=== PATIENT | male | born 1985 | race Caucasian/White ===

== ENCOUNTER 2017-07-21 18:20 | Emergency (ER) | payer BC ==
[2017-07-21 18:51] VITALS: BP 144/97
--- NOTE | 2017-07-21 19:06 | UC ---
General HPI - HPI Summary HPI Summary: Per adult secondary education instructor: ""loss of vision in my left eye. blurry and headache.. feels like somebody hit me in the back (lower back pain) and it chang when I pee"- states sx started w/in the last hour. Denies foreign body in eye. Started feeling dizzy an hour ago while driving- denies syncopal episode. Pt is type 2 diabetic, last BG check 2 days ago was 180. Was off meds for 2 months d/t PCP change- has been on diabetic meds x1 month now and following up w/ PCP on labs. " -was feeling well until he ate taco [employer] last night. woke up nauseated and throwing up between 2300 last night and 3 AM today. appetite is still poor. ate 1300 today and threw up 30 mins later. he has been dizzy, more room spinning that lightheaded. 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 denies sx of amaurosis fugax sx. no diplopia. lost vision for ~ 10-15 mins and has returned but fuzzy. states that he doesn't recall much from that time that it was "kind of like tunnel vision" . denies CP/SOB. no abd pain. no coffee ground emesis. no melena/BRBPR. denies w/n/t in arms or legs, no slurred speech. -c/o left low back pain, start of dysuria ~ 1 hr ago. no hematuria. not on insulin Fhx unknown as he is adopted. Here w/ his who is very supportive - History of Current Complaint Chief Complaint: UCGU Stated Complaint: HEADACHE, LEFT EYE BLURRED VISION, URINARY Time Seen by Provider: 07/21/17 18:35 Pain Intensity: 5 - Allergy/Home Medications Allergies/Adverse Reactions: Allergies Allergy/AdvReac Type Severity Reaction Status Date / Time cefaclor [From [facility]] Allergy Severe Hives Verified 07/21/17 18:43 Home Medications: Home Medications Dapagliflozin Propanediol [Farxiga] 10 mg PO DAILY 07/21/17 [History Confirmed 07/21/17] FLUoxetine CAP* [Prozac CAP*] 20 mg PO BID 07/21/17 [History Confirmed 07/21/17] Fenofibrate 160 mg BEDTIME 07/21/17 [History Confirmed 07/21/17] LevoCETirizine TAB (NF) [Xyzal TAB (NF)] 5 mg PO DAILY 07/21/17 [History Confirmed 07/21/17] Sitagliptin Phosphate [Januvia] 100 mg PO BEDTIME 07/21/17 [History Confirmed ] metFORMIN* [Glucophage 1000 MG TAB *] 1,000 mg PO BID 07/21/17 [History Confirmed 07/21/17] PMH/Surg Hx/FS Hx/Imm Hx Previously Healthy: Yes Endocrine History: Diabetes - Surgical History Surgical History: Yes Surgery Procedure, Year, and Place: Pilonidal cyst. Colon resection. Tonsils. Ear tubes - Family History Known Family History: Positive: Unknown - adopted - Social History Alcohol Use: Occasionally Substance Use Type: None Smoking Status (MU): Never Smoked Tobacco Type: Smokeless Tobacco Review of Systems Constitutional: Fatigue Skin: Negative Eyes: Other - left vision loss ENT: Negative Respiratory: Negative Cardiovascular: Negative Gastrointestinal: Negative Genitourinary: Negative Motor: Negative Neurovascular: Negative Musculoskeletal: Negative Neurological: Headache, Weakness, Other - dizzy Psychological: Negative Is Patient Immunocompromised?: No All Other Systems Reviewed And Are Negative: Yes Physical Exam Triage Information Reviewed: Yes Appearance: Well-Nourished, Ill-Appearing Vital Signs: Initial Vital Signs Temp 98 F 07/21/17 18:45 Pulse 84 07/21/17 18:45 Resp 16 07/21/17 18:45 BP 144/97 07/21/17 18:45 Pulse Ox 97 07/21/17 18:45 Vital Signs Reviewed: Yes Eye Exam: Normal - PERRL, EOMI, CR II-XII intact. ENT Exam: Normal ENT: Positive: Pharynx normal, TMs normal Dental Exam: Normal Neck exam: Normal Neck: Positive: Supple, Nontender, No Lymphadenopathy Respiratory: Positive: Lungs clear, Normal breath sounds, No respiratory distress, No accessory muscle use. Negative: Crackles, Rhonchi, Stridor, Wheezing Cardiovascular Exam: Normal Cardiovascular: Positive: RRR, No Murmur, Pulses Normal Abdomen Description: Positive: Nontender, Soft, CVA Tenderness (L) Musculoskeletal Exam: Normal Neurological: Positive: Lethargic - slight, Other: - strength intact B/L UE & LE b/l and equal. neg rhomberg, no pronatort drift. able to do tandem gait, but slowly and with concentration. Psychological Exam: Normal Skin Exam: Normal Course/Dx - Course Course Of Treatment: FS - 161. UA + 3 glucose (d/t farxiga), neg nitites and neg WBCs. -911 called for trx to er, stroke center. 81 closed d/t weather/ traffic and pt will be trx'd to [facility]. s/w LIDA Cordoba in ER at 19:30 who accepts pt. -also discussed left CVAT - ? muscle strain from vomiting or possible infection - Differential Dx - Multi-Symptom Differential Diagnoses: CVA Provider Diagnoses: MESSINA, loss of vision lefy, LBP, nausea w/ vomiting, DM Discharge - Discharge Plan Condition: Fair Disposition: TRANS HIGHER LVL OF CARE FAC Referrals: Kemar Pierre PA [Primary Care Provider] - Additional Instructions: BP elevated upon leaving on stretcher more so, but anxious and crying. elevated BP d/t medical condition/stressors.
== END 2017-07-21 19:42 | disposition short-term general hospital (02) ==
LOC: UCCORT 18:20
DX: R51 Headache (principal); M54.5 Low back pain; H53.8 Other visual disturbances; R11.2 Nausea with vomiting, unspecified; E11.9 Type 2 diabetes mellitus without complications; Z88.1 Allergy status to other antibiotic agents
CPT/HCPCS: 81003; 99203; G0463

== ENCOUNTER 2017-07-21 20:20 | Emergency (ER) | payer BC ==
[2017-07-21] MEDS ORDERED: NS 0.9% 1000 ML* 1,000 ML IV ONE (20:38)
[2017-07-21 20:55] LABS: ABS Basophils 0.1 10^3/ul (0-0.2); ABS Eosinophils 0 10^3/ul (0-0.6); ABS Lymphocytes 1.9 10^3/ul (1.0-4.8); ABS Monocytes 0.4 10^3/ul (0-0.8); ABS Neutrophils 6.6 10^3/ul (1.5-7.7); ABS Nucleated RBC 0 10^3/ul; Eosinophil % 0.3 % (0-6); Hematocrit 48 % (42-52); Hemoglobin 16.8 g/dl (14.0-18.0); Lymphocyte % 21.4 % (25-47); Mean Corpuscular HGB Conc 35 g/dl (31-36); Mean Corpuscular Hemoglobin 29 pg (27-31); Mean Corpuscular Volume 83 fL (80-94); Mean Platelet Volume 7 um3 (7.4-10.4); Nucleated Red Blood Cells % 0; Platelet Count 248 10^3/ul (150-450); Red Blood Count 5.81 10^6/ul (4.0-5.4); Red Cell Distribution Width 13 % (10.5-15); White Blood Count 8.9 10^3/ul (3.5-10.8)
[2017-07-21 21:12] LABS: EGFR Non-African American 83.5 (>60)
--- NOTE | 2017-07-21 22:02 | RAD ---
Indication: Transient visual loss, mono ocular. CT of the brain was performed without IV contrast. Ventricular structures are midline. No midline shift is noted. The extraction spaces are unremarkable. There is no evidence of intracranial mass or hemorrhage. No other high or low density lesions identified. Mastoid air cells and paranasal sinuses were visualized are unremarkable. IMPRESSION: No intracranial mass or hemorrhage is noted.
[2017-07-21 22:05] VITALS: BP 140/77
--- NOTE | 2017-07-21 22:16 | ED ---
Kd Mota Gabriel, scribed for Henry Mondragon MD on 07/21/17 at 2037 . Headache - HPI Summary HPI Summary: This patient is a 31 year old [place] [facility] be [place] for a possible CVA. 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 Patient reports vomiting and nausea prior to MESSINA. Patient denies weakness, photophobia, slurred speech, and numbness. His vision has improved since the onset. Pt has had migraines previously but none that have presently like this. - History Of Current Complaint Stated Complaint: POSS STROKE Hx Obtained From: Patient Onset/Duration: Started hours ago, Still Present Initially Headache Was: Initial Pain Scale(0-10)= - 8 Currently Pain Is: Current Pain Scale(0-10)= - 5 Timing: Constant Character: Migraine Associated Signs And Symptoms: Negative - weakness, photophobia, slurred speech , and numbness, Nausea, Vomiting, Visual Changes, Other (Noted In Comments) - Allergies/Home Medications Allergies/Adverse Reactions: Allergies Allergy/AdvReac Type Severity Reaction Status Date / Time cefaclor [From Ceclor] Allergy Severe Hives Verified 07/21/17 18:43 PMH/Surg Hx/FS Hx/Imm Hx Endocrine/Hematology History: Reports: Hx Diabetes - Type 2 Neurological History: Reports: Hx Migraine - Surgical History Surgery Procedure, Year, and Place: Pilonidal cyst. Colon resection. Tonsils. Ear tubes Infectious Disease History: No Infectious Disease History: Denies: Traveled Outside the [place] in Last 30 Days - Family History Known Family History: Positive: Unknown - adopted - Social History Occupation: Employed Full-time - tow truck Lives: With Family Alcohol Use: Occasionally Substance Use Type: Reports: None Smoking Status (MU): Never Smoked Tobacco Type: Smokeless Tobacco Review of Systems Negative: Photophobia, Blurred Vision Positive: Vomiting, Nausea Positive: Headache. Negative: Weakness, Numbness, Slurred Speech All Other Systems Reviewed And Are Negative: Yes Physical Exam - Summary Physical Exam Summary: Appearance: Well-appearing, Well-nourished Skin: Warm, Dry, No rash Eyes: Normal, PERRL, EOMI, sclera anicteric ENT: Normal Neck: Supple, nontender Respiratory: Clear to auscultation Cardiovascular: S1, S2, no murmur, no rub, no gallop Abdomen: Soft, nontender, no organomegaly Bowel sounds: Present Musculoskeletal: Normal, Strength/ROM Intact, no edema, pulses symmetrical Neurological: Normal, A&Ox3, cranial nerves II-XII WNL, follows commands, gait not tested, sensation intact to pin and light touch Psychiatric: affect normal, behavior appropriate, dressed appropriately, judgment intact Triage Information Reviewed: Yes Vital Signs On Initial Exam: Initial Vitals Temp Pulse Resp BP Pulse Ox 99.2 F 87 18 148/95 95 07/21/17 20:30 07/21/17 20:30 07/21/17 20:30 07/21/17 20:30 07/21/17 20:30 Vital Signs Reviewed: Yes Diagnostics - Vital Signs Vital Signs Temp Pulse Resp BP Pulse Ox 07/21/17 20:30 99.2 F 87 18 148/95 95 - Laboratory Result Diagrams: 07/21/17 20:47 07/21/17 20:47 Lab Statement: Any lab studies that have been ordered have been reviewed, and results considered in the medical decision making process. - CT CT brain CT Interpretation Completed By: Radiologist - No intracranial mass or hemorrhage is noted. ED physician has reviewed this radiology report and agrees. Headache Course/Dx - Course Assessment/Plan: This patient is a 31 year old M BIBA to [facility] from to be evaluated for a possible CVA. 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 Patient reports vomiting and nausea prior to MESSINA. Patient denies weakness, photophobia, slurred speech, and numbness. His vision has improved since the onset. Pt has had migraines previously but none that have presently like this. CT Brain reveals, per radiologist, No intracranial mass or hemorrhage is noted. Test results with no significant abnormalities. In the ED course the patient was given IV fluids. Dx complex migraine. Patient will be discharged with prescription for Zolmitriptan and follow up from Dr. Pierre. The patient is agreeable with this plan. - Diagnoses Provider Diagnoses: complex migraine Discharge - Discharge Plan Condition: Good Disposition: HOME Prescriptions: ZOLMitriptan [Zolmitriptan] 2.5 mg PO Q2HR PRN 6 Days #12 tablet PRN Reason: Headache Patient Education Materials: Migraine Headache (ED) Referrals: Kemar Pierre PA [Primary Care Provider] - The documentation as recorded by the Kd guerrero Gabriel accurately reflects the service I personally performed and the decisions made by me, Henry Mondragon MD.
== END 2017-07-21 22:05 | disposition home or self-care (01) ==
LOC: ED 20:20
DX: G43.809 Other migraine, not intractable, without status migrainosus (principal); R11.2 Nausea with vomiting, unspecified; R51 Headache
CPT/HCPCS: 36415; 70450; 80053; 85025; 96360; 99283

== ENCOUNTER 2017-10-16 19:36 | Emergency (ER) | payer BC ==
[2017-10-16 20:37] VITALS: BP 159/96
--- NOTE | 2017-10-16 20:54 | ED ---
Skin Complaint - HPI Summary HPI Summary: 31 yr old male who states he had a mosquito bite to his right forearm and it has gotten red and now about 2 cm in diameter. No fever or chills. He is concerned about infected bite. - History of Current Complaint Chief Complaint: UCSkin Time Seen by Provider: 10/16/17 20:32 Stated Complaint: SKIN COMPLAINT Pain Intensity: 4 - Allergy/Home Medications Allergies/Adverse Reactions: Allergies Allergy/AdvReac Type Severity Reaction Status Date / Time cefaclor [From Ceclor] Allergy Severe Hives Verified 10/16/17 20:28 PMH/Surg Hx/FS Hx/Imm Hx Endocrine/Hematology History: Reports: Hx Diabetes - Type 2 Neurological History: Reports: Hx Migraine - Surgical History Surgery Procedure, Year, and Place: Pilonidal cyst. Colon resection. Tonsils. Ear tubes Infectious Disease History: No Infectious Disease History: Denies: Traveled Outside the [place] in Last 30 Days - Family History Known Family History: Positive: Unknown - adopted - Social History Lives: With Family Alcohol Use: Occasionally Substance Use Type: Reports: None Smoking Status (MU): Never Smoked Tobacco Type: Smokeless Tobacco Review of Systems Constitutional: Negative Positive: Other - skin bug bite and redness All Other Systems Reviewed And Are Negative: Yes Physical Exam Triage Information Reviewed: Yes Vital Signs On Initial Exam: Initial Vitals Temp Pulse Resp BP Pulse Ox 98.5 F 87 16 159/96 95 10/16/17 20:31 10/16/17 20:31 10/16/17 20:31 10/16/17 20:31 10/16/17 20:31 Vital Signs Reviewed: Yes Appearance: Positive: Well-Appearing, No Pain Distress Skin: Positive: Other - bug bite to right forearm with 2 cm of redness but no abscess and no fluctuance. Head/Face: Positive: Normal Head/Face Inspection Eyes: Positive: EOMI ENT: Positive: Normal ENT inspection Neck: Positive: Nontender Respiratory/Lung Sounds: Positive: Clear to Auscultation, Breath Sounds Present Cardiovascular: Positive: RRR Musculoskeletal: Positive: Strength/ROM Intact, Other - right forearm with out lymphadenopathy in axilla, non in elbow. Neurological: Positive: Sensory/Motor Intact, Alert, Oriented to Person Place, Time, CN Intact II-III Psychiatric: Positive: Normal - Sweetser Coma Scale Best Eye Response: 4 - Spontaneous Best Motor Response: 6 - Obeys Commands Best Verbal Response: 5 - Oriented Coma Scale Total: 15 Diagnostics - Vital Signs Vital Signs Temp Pulse Resp BP Pulse Ox 10/16/17 20:31 98.5 F 87 16 159/96 95 - Laboratory Lab Statement: Any lab studies that have been ordered have been reviewed, and results considered in the medical decision making process. Course/Dx - Course Course Of Treatment: 31 yr old with bug bit infected. Rx with doxy. - Diagnoses Provider Diagnoses: Cellulitis of arm, right, Bug bite, Hypertension Discharge - Sign-Out/Discharge Documenting (check all that apply): Discharge/Admit/Transfer - Discharge Plan Condition: Good Disposition: HOME Prescriptions: DOXYcycline CAP(*) [DOXYcycline 100MG CAP(*)] 100 mg PO BID #20 cap Patient Education Materials: Cellulitis (ED), Insect Bite or Sting (ED), Hypertension (ED) Referrals: [facility]FERR[facility] [Outside] No Primary Care Phys,NOPCP [Primary Care Provider] - - Billing Disposition and Condition Condition: GOOD Disposition: Home
== END 2017-10-16 20:56 | disposition home or self-care (01) ==
LOC: UCCORT 19:36
DX: S50.861A Insect bite (nonvenomous) of right forearm, initial encounter (principal); L03.113 Cellulitis of right upper limb; W57.XXXA Bitten or stung by nonvenomous insect and other nonvenomous arthropods, initial encounter; Y93.9 Activity, unspecified; Y99.9 Unspecified external cause status; I10 Essential (primary) hypertension; E11.9 Type 2 diabetes mellitus without complications
CPT/HCPCS: 99212; G0463

== ENCOUNTER 2018-05-01 20:19 | Emergency (ER) | payer BC ==
[2018-05-01 20:34] VITALS: BP 142/89
[2018-05-01] MEDS ORDERED: Ciprofloxacin TAB* 500 MG PO ONE (20:44)
[2018-05-01] MEDS ORDERED: metroNIDAZOLE TAB* 250 MG PO ONE (20:44)
--- NOTE | 2018-05-01 20:49 | UC ---
Abdominal Pain Male HPI - HPI Summary HPI Summary: The patient is a 32-year-old male with a history of diabetes who presents here with the onset of left lower quadrant abdominal pain this a.m. Pain is been constant and varies between a 4 and a 7 out of 10. He has had some nausea but no vomiting. He denies any change in bowel habits. He has had diverticulitis twice in the past and required a colon resection his last episode. - History of Current Complaint Chief Complaint: UCGI Stated Complaint: LEFT SIDE LOWER ABDOMINAL PAIN Time Seen by Provider: 05/01/18 20:28 Hx Obtained From: Patient Onset/Duration: Gradual Onset, Lasting Hours Timing: Constant Severity Initially: Mild Severity Currently: Mild Pain Intensity: 4 - 7 at times Pain Scale Used: 0-10 Numeric Location: Discrete At: LLQ Radiates: No Character: Aching, Cramping Aggravating Factor(s): Movement Alleviating Factor(s): Rest Associated Signs And Symptoms: Positive: Nausea - Allergies/Home Medications Allergies/Adverse Reactions: Allergies Allergy/AdvReac Type Severity Reaction Status Date / Time cefaclor [From [facility]] Allergy Severe Hives Verified 05/01/18 20:28 Home Medications: Home Medications Desloratidine (NF) [Clarinex (NF)] 1 tab DAILY 05/01/18 [History Confirmed 05/01] PMH/Surg Hx/FS Hx/Imm Hx Previously Healthy: Yes Endocrine History: Diabetes GI/ History: Diverticulitis - Surgical History Surgical History: Yes Surgery Procedure, Year, and Place: Pilonidal cyst. Colon resection. Tonsils. Ear tubes - Family History Known Family History: Positive: Unknown - adopted - Social History Alcohol Use: Occasionally Substance Use Type: None Smoking Status (MU): Never Smoked Tobacco Type: Smokeless Tobacco - Immunization History Most Recent Tetanus Shot: UTD Review of Systems All Other Systems Reviewed And Are Negative: Yes Constitutional: Positive: Negative Skin: Positive: Negative Eyes: Positive: Negative ENT: Positive: Negative Respiratory: Positive: Negative Cardiovascular: Positive: Negative Gastrointestinal: Positive: Abdominal Pain, Nausea Genitourinary: Positive: Negative Motor: Positive: Negative Neurovascular: Positive: Negative Musculoskeletal: Positive: Negative Neurological: Positive: Negative Psychological: Positive: Negative Physical Exam Triage Information Reviewed: Yes Appearance: Well-Appearing, Well-Nourished, Pain Distress - appear uncomfortable walking Vital Signs: Initial Vital Signs Temp 98 F 05/01/18 20:30 Pulse 61 05/01/18 20:30 Resp 16 05/01/18 20:30 BP 142/89 05/01/18 20:30 Pulse Ox 100 05/01/18 20:30 Vital Signs Reviewed: Yes Eyes: Positive: Conjunctiva Clear ENT: Positive: Hearing grossly normal. Negative: Nasal congestion, Nasal drainage, Trismus, Muffled voice, Hoarse voice Neck: Positive: Supple, Nontender Respiratory: Positive: Lungs clear, Normal breath sounds, No respiratory distress Cardiovascular: Positive: RRR, No Murmur Abdomen Description: Positive: No Organomegaly, Guarding. Negative: Nontender - tender LLQ>LUQ, CVA Tenderness (R), CVA Tenderness (L), Distended Musculoskeletal: Positive: ROM Intact, No Edema Neurological: Positive: Alert Psychological Exam: Normal Skin Exam: Normal Abd Pain Male Course/Dx - Course Course Of Treatment: d/w Mary Neil. to [facility]. declines EMS transfer - Differential Dx/Clinical Impression Provider Diagnosis: Left sided abdominal pain Discharge - Sign-Out/Discharge Documenting (check all that apply): Patient Departure All imaging exams completed and their final reports reviewed: No Studies - Discharge Plan Condition: Stable Disposition: HOME-RECOMMEND TO ED Referrals: No Primary Care Phys,NOPCP [Primary Care Provider] - Additional Instructions: I suggest you go straight to the [facility] I spoke to Dr. Mary Deshpande and they are expecting you you had CIPRO 500MG here and Flagyl 500mg - Billing Disposition and Condition Condition: STABLE Disposition: Home-Recommend to ED
== END 2018-05-01 20:51 | disposition home health service (06) ==
LOC: UCCORT 20:19
DX: R10.32 Left lower quadrant pain (principal); E11.9 Type 2 diabetes mellitus without complications; Z88.1 Allergy status to other antibiotic agents
CPT/HCPCS: 99212; A9270-GY; G0463

== ENCOUNTER 2019-03-22 07:34 | Emergency (ER) | payer BC ==
--- OUTSIDE RECORDS SUMMARY | 2019-03-22 07:38 | XMS REPORT | Continuity of Care Document ---
:1985 External Reference #:[id number] Author Name Jose Kim M.D. Address [address] [facility] [address] [place] [address] Problems Active Problems Provider Date Type 2 diabetes mellitus Adelso Persaud MERCHANDISE SUPPORT ASSOCIATE Onset: 02/21/2014 Morbid obesity Adelso Persaud MERCHANDISE SUPPORT ASSOCIATE Onset: 02/21/2014 Tobacco user Adelso Persaud MERCHANDISE SUPPORT ASSOCIATE Onset: 02/21/2014 Essential hypertension Onset: 04/24/2014 Pure hypercholesterolemia Onset: 04/24/2014 Social History Type Date Description Comments Sex Unknown Tobacco Use Start: Unknown Current Smokeless Tobacco User, Uses Occasionally ETOH Use Denies alcohol use Tobacco Use Start: Unknown Patient is a current smoker, smokes every CHEWS day Smoking Status Reviewed: 02/13/19 Patient is a current smoker, smokes every CHEWS day Allergies, Adverse Reactions, Alerts Active Allergies Reaction Severity Comments Date Ceclor 08/24/2011 Medications Active Medications SIG Qnty Indications Ordering Provider Date Azithromycin 1 by mouth every 7tabs J20.9 Jose Kim, 02/18/2019 500mg day M.D. Tablets Metformin HCL ER 1 by mouth every 90tabs E11.65 Jose Kim, 2018 750mg day M.D. Tablets ER 24HR Pioglitazone 1 by mouth every 90tabs E11.65 Jose Kim, 09/19/2018 HCL-Glimepiride day M.D. 30-4mg Tablets Fluoxetine HCL Take One Capsule 180caps F33.9 Jose Kim, 06/13/2017 20mg By Mouth Twice A M.D. Capsules Day F41.9 Fenofibrate Take One Tablet By 90tabs E78.2 Jose Kim 09/26/2014 160mg Tablets Mouth Every Day AT [facility] Ultra Fine Lancets use bid 100units E11.65 [facility] 02/07/2014 [facility] Contour Next Test Strips use twice a day 100units E11.65 [facility] Levocetirizine 1 by mouth every 30tabs J30.9 [facility], [facility] 09/25/2012 Dihydrochloride Per day [facility] Creative [employer]ologist 5mg Tablets Flonase Per Creative Technologist 2 intranasal twice 2units J30.9 [facility] 2012 a day [facility] 50mcg/Act Suspension Immunizations CPT Code Status Date Vaccine Lot # [id number] Given 01/01/2015 TDaP [id number] Refused 02/07/2014 Flu Vaccine Vital Signs Date Vital Result Comment 02/18/2019 10:04am BP Systolic 128 mmHg BP Diastolic 84 mmHg Height 72.5 inches 6'0.50" Weight 286.00 lb BMI (Body Mass Index) 38.3 kg/m2 Heart Rate 59 /min Respiratory Rate 16 /min 10/03/2018 9:43am BP Systolic 130 mmHg BP Diastolic 64 mmHg Height 72.5 inches 6'0.50" Weight 267.00 lb BMI (Body Mass Index) 35.7 kg/m2 Heart Rate 63 /min Respiratory Rate 16 /min Results Test Date Facility Test Result H/L Range Note Laboratory test [facility] Hemoglobin A1c <pending> finding 9 [address] ([facility])- - Laboratory test [facility] TSH, Ultrasenstive <pending> finding 9 [address] (607)- - CBC With Diff [facility] WBC 6.2 (4.1-11.0 9 [address] 10*3/uL ) (607)- - RBC 6.14 10*6/uL High (4.60-6.10) HGB 17.4 g/dL (13.5-18.0) HCT 51.5 % (41.0-53.0) MCV 83.8 fL (80.0-95.0) MCH 28.4 pg (27.0-32.0) MCHC 33.9 g/dL (32.0-36.0) RDW 12.9 % (10.5-14.5) PLT 270 10*3/uL (150-450) MPV 8.0 fL (7.1-10.7) Neut % 67.4 % (35.0-75.0) Lymph % 24.3 % (16.0-52.0) [place] % 5.4 % (0.0-8.0) Eos % 2.4 % (0.0-5.0) Baso % 0.5 % (0.0-4.0) Neut # 4.2 10*3/uL (1.8-7.7) Lymph # 1.5 10*3/uL (1.2-4.8) [place] # 0.3 10*3/uL (0.0-0.8) Eos # 0.1 10*3/uL (0.0-0.5) Baso # 0.0 10*3/uL (0.0-0.2) CMP 09/19/2018 [facility] Sodium 134 mmol/L Low (136-145) [address] (607)- - Potassium 4.5 mmol/L (3.6-5.2) Chloride 100 mmol/L (100-108) Co2 31 mmol/L (22-31) Anion Gap 3 mmol/L Low (7-16) Urea Nitrogen 12 mg/dL (7-24) Creatinine 1.00 mg/dL (0.80-1.30) BUN/Creat Ratio 12.0 RATIO (10.0-20.0) Glucose 226 mg/dL High (70-99) Calcium 9.3 mg/dL (8.4-10.2) Total Protein 7.9 g/dL (6.4-8.2) Albumin 4.5 g/dL (3.5-4.6) Globulin 3.4 g/dL (2.7-4.3) Alb/Glob Ratio 1.3 RATIO Alkaline Phosphatase 50 U/L (45-117) Bilirubin,Total 0.8 mg/dL (0.0-1.0) Ast (Sgot) 27 U/L (11-39) Alt (SGPT) 56 U/L (12-78) GFR >60 ml/min/1.73m2 (>59) GFR ( Amer) >60 ml/min/1.73m2 (>59) GFR Interpretation <SEE NOTE> 1 Lipid 09/19/2018 [facility] Cholesterol @ 257 mg/dL High (0-200) [address] (607)- - Triglyceride @ 320 mg/dL High (30-200) HDL Cholesterol @ 40 mg/dL Low (>40) 2 Chol/HDL Ratio 6.4 RATIO 3 LDL Chol (Calc) UNABLE TO CALCUL <SEE NOTE> mg/dL (<130) 4 Hemoglobin A1c 09/19/2018 [facility] Hemoglobin A1c @ 8.8 % High (4.0- 6.0) [address] (607)- - Est Average Glucose 206 mg/dL Laboratory 09/19/2018 [facility] TSH,Ultrasensitive @ 0.993 (0.360- 4.170) test finding [address] [facility] m[facility]/L (607)- - 25 Hydroxy Vit D @ 14 ng/mL Low (31-100) 6 Direct LDL @ 156 mg/dL High (<130) 7 1 NORMAL KIDNEY FUNCTION OR MILD DISEASE - GFR >OR= 60 CHRONIC KIDNEY DISEASE - GFR 15 - 59 RENAL FAILURE - GFR <15 Est. GFR calculation based on the MDRD study equation, which assumes a steady state for creatinine. Est. GFR should not be used for medication dosing. 2 PER NCEP ATP III GUIDELINES: RESULTS LOWER THAN 40 MG/DL ARE SUGGESTIVE OF INCREASED RISK FOR CORONARY ARTERY DISEASE. RESULTS > OR = TO 60 MG/DL ARE CONSIDERED A NEGATIVE RISK FACTOR. 3 INTERPRETATION OF CHOL-HDL RATIO CHD RISK FEMALE MALE VERY HIGH >8.3 >14.3 HIGH 5.6- 8.3 6.7- 14.3 AVERAGE 3.7- 5.6 4.0- 6.7 BELOW AVERAGE 2.5- 3.7 2.7- 4.0 PROTECTED <2.5 <2.7 4 UNABLE TO CALCULATE VALID LDL DUE TO INTERFERENCE FROM ELEVATED TRIGLYCERIDES (GREATER THAN 300 MG/DL). SEE RESULT FOR DIRECT LDL. 5 Performed using Siemens Enfield immunoassay. Care must be taken when interpreting HbA1c results in patients with a hemoglobin variant or decreased erythrocyte lifespan. Values 5.7 - 6.4% suggest prediabetes. Values >=6.5% are diagnostic for diabetes. REFERENCE: DIABETES CARE 2018: 41(S13-S27). 6 A REVIEW OF THE LITERATURE SUGGESTS THE FOLLOWING RANGES FOR THE CLASSIFICATION OF 25-OH VITAMIN D STATUS: VITAMIN D STATUS 25-OH VITAMIN D DEFICIENCY <20 NG/ML INSUFFICIENCY 20-30 NG/ML SUFFICIENCY 31 - 100 NG/ML TOXICITY > 100 NG/ML A PEDIATRIC REFERENCE RANGE HAS NOT BEEN ESTABLISHED USING THIS METHOD. 7 PER NCEP ATP III GUIDELINES: OPTIMAL < 100 NEAR OPTIMAL 100 - 129 BORDERLINE HIGH 130 - 159 HIGH 160 - 189 VERY HIGH > 189 Procedures Date Code Description Status 02/18/2019 85981 Visual Screening Test Completed 02/18/2019 83752 Spirometry Completed 02/18/2019 08663 Tympanometry Completed 09/19/2018 21309 Visual Screening Test Completed 09/19/2018 13157 Audiometry, Bekesy, Screening Completed Medical Devices Description No Information Available Encounters Type Date Location Provider Dx Diagnosis Office Visit 02/18/2019 Jose Pritchard, E11.65 Type 2 diabetes 10:15a M.D. mellitus with hyperglycemia E78.2 Mixed hyperlipidemia J30.9 Allergic rhinitis, unspecified L20.9 Atopic dermatitis, unspecified F17.200 Nicotine dependence, unspecified, uncomplicated E66.01 Morbid (severe) obesity due to excess calories F33.9 Major depressive disorder, recurrent, unspecified F41.9 Anxiety disorder, unspecified K57.30 Dvrtclos of lg int w/o perforation or abscess w/o bleeding E55.9 Vitamin D deficiency, unspecified I45.10 Unspecified right bundle-branch block J20.9 Acute bronchitis, unspecified J01.40 Acute pansinusitis, unspecified H66.93 Otitis media, unspecified, bilateral R09.81 Nasal congestion R06.02 Shortness of breath R05 Cough H52.13 Myopia, bilateral Office Visit 10/03/2018 8:30a Jose Pritchard, E11.65 Type 2 diabetes mellitus M.D. with hyperglycemia E78.2 Mixed hyperlipidemia J30.9 Allergic rhinitis, unspecified L20.9 Atopic dermatitis, unspecified F17.200 Nicotine dependence, unspecified, uncomplicated E66.01 Morbid (severe) obesity due to excess calories F33.9 Major depressive disorder, recurrent, unspecified F41.9 Anxiety disorder, unspecified K57.30 Dvrtclos of lg int w/o perforation or abscess w/o bleeding E55.9 Vitamin D deficiency, unspecified I45.10 Unspecified right bundle-branch block Office Visit 09/19/2018 1:45p Jose Pritchard, E11.65 Type 2 diabetes mellitus M.D. with hyperglycemia E78.2 Mixed hyperlipidemia J30.9 Allergic rhinitis, unspecified L20.9 Atopic dermatitis, unspecified F17.200 Nicotine dependence, unspecified, uncomplicated E66.01 Morbid (severe) obesity due to excess calories F33.9 Major depressive disorder, recurrent, unspecified F41.9 Anxiety disorder, unspecified K57.30 Dvrtclos of lg int w/o perforation or abscess w/o bleeding E55.9 Vitamin D deficiency, unspecified I45.10 Unspecified right bundle-branch block Z00.01 Encounter for general adult medical exam w abnormal findings Assessments Date Code Description Provider 02/18/2019 E11.65 Type 2 diabetes mellitus with hyperglycemia Jose Kim M.D. 02/18/2019 E78.2 Mixed hyperlipidemia Jose Kim M.D. 02/18/2019 J30.9 Allergic rhinitis, unspecified Jose Kim M.D. 02/18/2019 L20.9 Atopic dermatitis, unspecified Jose Kim M.D. 02/18/2019 F17.200 Nicotine dependence, unspecified, Jose Kim M.D. uncomplicated 02/18/2019 E66.01 Morbid (severe) obesity due to excess Jose Kim M.D. calories 02/18/2019 F33.9 Major depressive disorder, recurrent, Julio, Ahmad M., M.D. unspecified 02/18/2019 F41.9 Anxiety disorder, unspecified Jose Kim M.D. 02/18/2019 K57.30 Diverticulosis of large intestine without Jose Kim M.D. perforation or abscess without bleeding 02/18/2019 E55.9 Vitamin D deficiency, unspecified Jose Kim M.D. 02/18/2019 I45.10 Unspecified right bundle-branch block Jose Kim M.D. 02/18/2019 J20.9 Acute bronchitis, unspecified Jose Kim M.D. 02/18/2019 J01.40 Acute pansinusitis, unspecified Jose Kim M.D. 02/18/2019 H66.93 Otitis media, unspecified, bilateral Jose Kim M.D. 02/18/2019 R09.81 Nasal congestion Jose Kim M.D. 02/18/2019 R06.02 Shortness of breath Jose Kim M.D. 02/18/2019 R05 Cough Jose Kim M.D. 02/18/2019 H52.13 Myopia, bilateral Jose Kim M.D. 01/02/2019 E11.65 Type 2 diabetes mellitus with hyperglycemia Jose Kim M.D. 01/02/2019 E78.2 Mixed hyperlipidemia Jose Kim M.D. 01/02/2019 J30.9 Allergic rhinitis, unspecified Jose Kim M.D. 01/02/2019 L20.9 Atopic dermatitis, unspecified Jose Kim M.D. 01/02/2019 F17.200 Nicotine dependence, unspecified, Jose Kim M.D. uncomplicated 01/02/2019 E66.01 Morbid (severe) obesity due to excess Jose Kim M.D. calories 01/02/2019 F33.9 Major depressive disorder, recurrent, Jose Kim M.D. unspecified 01/02/2019 F41.9 Anxiety disorder, unspecified Jose Kim M.D. 01/02/2019 K57.30 Diverticulosis of large intestine without Jose Kim M.D. perforation or abs 01/02/2019 E55.9 Vitamin D deficiency, unspecified Jose Kim M.D. 01/02/2019 I45.10 Unspecified right bundle-branch block Jose Kim M.D. 10/03/2018 E11.65 Type 2 diabetes mellitus with hyperglycemia Jose Kim M.D. 10/03/2018 E78.2 Mixed hyperlipidemia Jose Kim M.D. 10/03/2018 J30.9 Allergic rhinitis, unspecified Jose Kim M.D. 10/03/2018 L20.9 Atopic dermatitis, unspecified Jose Kim M.D. 10/03/2018 F17.200 Nicotine dependence, unspecified, Jose Kim M.D. uncomplicated 10/03/2018 E66.01 Morbid (severe) obesity due to excess JulioJose jarrett M.D. calories 10/03/2018 F33.9 Major depressive disorder, recurrent, Jose Kim M.D. unspecified 10/03/2018 F41.9 Anxiety disorder, unspecified Jose Kim M.D. 10/03/2018 K57.30 Diverticulosis of large intestine without Jose Kim M.D. perforation or abs 10/03/2018 E55.9 Vitamin D deficiency, unspecified Jose Kim M.D. 10/03/2018 I45.10 Unspecified right bundle-branch block Jose Kim M.D. 09/19/2018 E11.65 Type 2 diabetes mellitus with hyperglycemia Jose Kim M.D. 09/19/2018 E78.2 Mixed hyperlipidemia Jose Kim M.D. 09/19/2018 J30.9 Allergic rhinitis, unspecified Jose Kim M.D. 09/19/2018 L20.9 Atopic dermatitis, unspecified Jose Kim M.D. 09/19/2018 F17.200 Nicotine dependence, unspecified, Jose Kim M.D. uncomplicated 09/19/2018 E66.01 Morbid (severe) obesity due to excess Joes Kim M.D. calories 09/19/2018 F33.9 Major depressive disorder, recurrent, Jose Kim M.D. unspecified 09/19/2018 F41.9 Anxiety disorder, unspecified Jose Kim M.D. 09/19/2018 K57.30 Diverticulosis of large intestine without Jose Kim M.D. perforation or abs 09/19/2018 E55.9 Vitamin D deficiency, unspecified Jose Kim M.D. 09/19/2018 I45.10 Unspecified right bundle-branch block Jose Kim M.D. 09/19/2018 Z00.01 Encounter for general adult medical Jose Kim M.D. examination with abnorma Plan of Treatment 02/18/2019 - Jose Kim M.D.E11.65 Type 2 diabetes mellitus with hyperglycemiaComments:DIET REVIEWED CONTINUE DIETWT LOSSFS qAC AND HS PRN F/U FBWFollow up:2 weeks.E78.2 Mixed hyperlipidemiaComments:DIET REVIEWED CONTINUE DIETWT LOSSF/U LAB FBWJ30.9 Allergic rhinitis, unspecifiedComments:INCREASE PO FLUID USE ANTIHISTAMINE PRN SECOND HAND SMOKING JWNHWKRUIS89.9 Atopic dermatitis , unspecifiedComments:SKIN CARE INSTRUCTIONS LOTION OR BABY OIL 2-3 APPLICATION PER DAYUSE MOISTURIZING SOAPAVOID PROLONGED WATER EXPOSUREAVOID USING HOT WATER IN MVYWGGC28.200 Nicotine dependence, unspecified, uncomplicatedComments:SMOKING CESSATION XYXPIWPHVANN92.01 Morbid (severe) obesity due to excess caloriesComments:WT LOSS COUNCELLINGEXERCISEDIET YFQSDZAZBLXD21.9 Major depressive disorder, recurrent, unspecifiedComments: COUNCELLING AND REASSURANCE RELAXATION TECHNIQUES DISCUSSED COUNSELED RE: STRESSORS IN LIFEF41.9 Anxiety disorder, unspecifiedComments:COUNCELLING AND REASSURANCE RELAXATION TECHNIQUES DISCUSSEDCOUNSELED RE: STRESSORS IN LIFE AVOID ALLENERGY/HIGH CAFFEINE LWVMHGJ03.30 Diverticulosis of large intestine without perforation or abscess without bleedingComments:TYLENOL OR MOTRIN PRN INCREASE PO FLUID LAXATIVE PRNE55.9 Vitamin D deficiency, unspecifiedComments: INCREASE EXPOSURE TO SUNREVIEW OF DIETI45.10 Unspecified right bundle-branch blockComments:STABLE AND ASYMPTOMATICF/U WITH CARDIOLOGY PRNJ20.9 Acute bronchitis, unspecifiedNew Medication:Azithromycin 500 mg - 1 by mouth every dayJ01.40 Acute pansinusitis, dfynkdlpyitO28.93 Otitis media, unspecified, nqphmhhwiZ86.81 Nasal bofqpqeirwT08.02 Shortness of pwznvtX59 GrsfbB78.13 Myopia , bilateralComments:USE GLASSES/ CONTACTSF/U WITH OPHTHALMOLOGY Functional Status Description No Information Available Mental Status Description No Information Available Referrals Description No Information Available
[2019-03-22 07:43] VITALS: BP 144/87
[2019-03-22] MEDS ORDERED: Fluorescein Sodium TOPICAL* 1 MG TEST STRIP OPHTHALMIC ONE (07:51)
[2019-03-22] MEDS ORDERED: Tetracaine 0.5% OPTH.SOL 4 ML* 1 DROP BTL RIGHT EYE ONE (08:08)
--- NOTE | 2019-03-22 08:26 | UC ---
Eye Complaint HPI - HPI Summary HPI Summary: 33 yo male was working on [employer] furn[employer]an[employer] yesterday PM blower came on FB right eye he attempted flushing in right eye pain and photophobia contact lens wearer - History of Current Complaint Chief Complaint: UCEye Stated Complaint: R EYE COMP. Time Seen by Provider: 03/22/19 07:51 Onset/Duration: Sudden Onset, Lasting Hours Timing: Constant Severity Initially: Mild Severity Currently: Moderate Pain Intensity: 4 Pain Scale Used: 0-10 Numeric Character: Foreign Body Sensation Aggravating Factor(s): Contact Lens Alleviating Factor(s): Darkness Associated Signs And Symptoms: Positive: Photophobia Eyes: 1 - ? corneal ulcer - Allergies/Home Medications Allergies/Adverse Reactions: Allergies Allergy/AdvReac Type Severity Reaction Status Date / Time cefaclor [From Ceclor] Allergy Severe Hives Verified 03/22/19 07:39 PMH/Surg Hx/FS Hx/Imm Hx Previously Healthy: Yes Endocrine History: Diabetes, Dyslipidemia Cardiovascular History: Hypertension - trying risk factor modification - Surgical History Surgical History: Yes Surgery Procedure, Year, and Place: Pilonidal cyst. Colon resection. Tonsils. Ear tubes - Family History Known Family History: Positive: Unknown - adopted - Social History Alcohol Use: Occasionally Substance Use Type: None Smoking Status (MU): Smoker, Current Status Unknown Type: Smokeless Tobacco Amount Used/How Often: 1 can weekly - Immunization History Most Recent Tetanus Shot: UTD Review of Systems All Other Systems Reviewed And Are Negative: Yes Constitutional: Positive: Negative Skin: Positive: Negative Eyes: Positive: Blurred Vision, Photophobia ENT: Positive: Negative Respiratory: Positive: Negative Cardiovascular: Positive: Negative Genitourinary: Positive: Negative Motor: Positive: Negative Neurovascular: Positive: Negative Musculoskeletal: Positive: Negative Neurological: Positive: Negative Psychological: Positive: Negative Physical Exam Triage Information Reviewed: Yes Appearance: Well-Appearing, No Pain Distress, Well-Nourished Vital Signs: Initial Vital Signs Temp 97.8 F 03/22/19 07:40 Pulse 72 03/22/19 07:40 Resp 15 03/22/19 07:40 BP 144/87 03/22/19 07:40 Pulse Ox 99 03/22/19 07:40 Vital Signs Reviewed: Yes Eyes: Positive: Conjunctiva Inflamed, Other: - see image. Negative: Discharge ENT: Positive: Hearing grossly normal. Negative: Nasal congestion, Nasal drainage, Trismus, Muffled voice, Hoarse voice Dental Exam: Normal Neck exam: Normal Neck: Positive: Supple Respiratory: Positive: Lungs clear, Normal breath sounds, No respiratory distress Cardiovascular: Positive: RRR, No Murmur Musculoskeletal: Positive: ROM Intact, No Edema Neurological: Positive: Alert Psychological Exam: Normal Skin Exam: Normal Eye Complaint Course/Dx - Differential Dx/Diagnosis Provider Diagnosis: Corneal ulcer, right, Elevated BP without diagnosis of hypertension Discharge ED - Sign-Out/Discharge Documenting (check all that apply): Patient Departure All imaging exams completed and their final reports reviewed: No Studies - Discharge Plan Condition: Stable Disposition: HOME Patient Education Materials: Corneal Ulcer (ED) Referrals: Omid Thacker MD [Medical Doctor] - (9AM) Additional Instructions: see Dr. Thacker this AM - Billing Disposition and Condition Condition: STABLE Disposition: Home
== END 2019-03-22 08:32 | disposition home or self-care (01) ==
LOC: UCCORT 07:34
DX: H16.001 Unspecified corneal ulcer, right eye (principal); E11.9 Type 2 diabetes mellitus without complications; I10 Essential (primary) hypertension; F17.290 Nicotine dependence, other tobacco product, uncomplicated; Z88.8 Allergy status to other drugs, medicaments and biological substances
CPT/HCPCS: 99212; A9270-GY; G0463

== ENCOUNTER 2019-05-28 17:21 | Emergency (ER) | payer BC ==
[2019-05-28] MEDS ORDERED: Tetracaine 0.5% OPTH.SOL 4 ML* 1 DROP BTL BOTH EYES ONE (17:29)
[2019-05-28] MEDS ORDERED: Fluorescein Sodium TOPICAL* 1 MG TEST STRIP OPHTHALMIC ONE (17:29)
--- OUTSIDE RECORDS SUMMARY | 2019-05-28 17:46 | XMS REPORT | Continuity of Care Document ---
:1985 External Reference #:[id number] Author Name Omid Thacker MD Address [address] [place] [address] Care Team Providers Name Role Phone John Mayer MD - Emergency Care Team Information Gaming Investigator Medicine Jose Kim M.D. - Family Medicine Care Team Information Gaming Investigator Problems Active Problems Provider Date Diverticulitis of colon Herminio Melendez M.D. Onset: 05/29/2014 Social History Type Date Description Comments Sex Unknown Tobacco Use Start: Unknown Never Smoked Cigarettes Smokeless Tobacco Current Smokeless Tobacco User, Uses Occasionally ETOH Use Denies alcohol use Tobacco Use Start: Unknown Patient has never smoked Does chew tobacco Smoking Status Reviewed: 04/01/19 Patient has never smoked Does chew tobacco Allergies, Adverse Reactions, Alerts Active Allergies Reaction Severity Comments Date Cephalosporins hives 06/24/2009 Cephalexin hives 07/08/2009 Ceclor 06/24/2009 Medications Active Medications SIG Qnty Indications Ordering Date Provider Ofloxacin (Ophthalmic) 1 drop right 1units H16.001 Omid Thacker MD 2018 0.3% eye four times Solution daily Ibuprofen po qd prn Unknown 800mg Tablets Levocetirizine 1 by mouth Unknown Dihydrochloride every day 5mg Tablets Fenofibrate 1 by mouth Unknown 160mg Tablets every day Buspirone HCL 1 tablet by Unknown 15mg Tablets mouth daily Metformin HCL 1 by mouth Unknown 1000mg Tablets twice a day Januvia 1 by mouth Unknown 100mg Tablets every day Farxiga 1 by mouth Unknown 10mg Tablets every day Immunizations Description No Information Available Vital Signs Date Vital Result Comment 04/08/2015 11:14am BP Systolic 146 mmHg BP Diastolic 95 mmHg Heart Rate 62 /min Height 74 inches 6'2" Weight 272.38 lb BMI (Body Mass Index) 35.0 kg/m2 BSA (Body Surface Area) 2.48 m2 11/04/2009 1:27pm Heart Rate 81 /min Respiratory Rate 20 /min Height 74 inches 6'2" Weight 280.00 lb BMI (Body Mass Index) 35.9 kg/m2 Results Description No Information Available Procedures Date Code Description Status 03/25/2019 16856 Eye Exam Est Patient Comprehensive Completed 03/22/2019 70178 Eye Exam New Patient Comprehensive Completed Medical Devices Description No Information Available Encounters Type Date Location Provider Dx Diagnosis Office Visit 04/01/2019 Ophthalmology Omid Thacker MD H16.001 Unspecified corneal 8:30a ulcer, right eye Assessments Date Code Description Provider 04/01/2019 H16.001 Unspecified corneal ulcer, right eye Omid Thacker MD 03/25/2019 H16.001 Unspecified corneal ulcer, right eye Omid Thacker MD 03/22/2019 H16.001 Unspecified corneal ulcer, right eye Omid Thacker MD Plan of Treatment 04/01/2019 - Omid Thacker MDH16.001 Unspecified corneal ulcer, right eyeComments:- you've done a great job!- resolved- scar has now formed; epithelium intact; no active infiltrate- abstain contact lens use for 1 more week- please stop ofloxacin- artificial tears can help soothe theeye- ok to stop cyclopentolate (red top)- please call with ? or concernsFollow up:please call with ? or concerns Functional Status Description No Information Available Mental Status Description No Information Available Referrals Description No Information Available
--- OUTSIDE RECORDS SUMMARY | 2019-05-28 17:46 | XMS REPORT | Continuity of Care Document ---
:1985 External Reference #:[id number] Author Name Omid Thacker MD Address [address] [place] [address] Care Team Providers Name Role Phone Jhon Mayer MD - Emergency Care Team Information Test [employer] [phone] Medicine Jose Kim M.D. - Family Medicine Care Team Information [employer] [phone] Problems Active Problems Provider Date Diverticulitis of [...] Information Available Procedures Date Code Description Status 03/22/2019 24120 Eye Exam New Patient Comprehensive Completed Medical [...] eye Omid Thacker MD Plan of Treatment 03/25/2019 - Omid Thacker MDH16.001 Unspecified corneal ulcer, right eyeComments:- much improved- epithelium is healing- infiltrate is beginning to fade- abstain contact lens use- ofloxacin 1 drop right eye 4 times daily- artificial tears can help soothe the eye- ok to stop cyclopentolate (red top)- 1 week return visitFollow up:1 week return visit Functional Status Description No Information Available Mental Status Description No Information Available Referrals Description No Information Available
[2019-05-28 17:50] VITALS: BP 149/97
--- NOTE | 2019-05-28 18:02 | UC ---
Eye Complaint HPI - HPI Summary HPI Summary: 33 yo diabetic, power cleaning his truck this morning, with onset of left eye irritation. Removed his contact lens from the eye, but has had ongoing irritation since the episode late this morning. Feels mildly photophobic and has a mild headache, with past hx of ocular migraine. Normal visual acuity here. - History of Current Complaint Chief Complaint: UCEye Stated Complaint: FOREIGN BODY LEFT EYE Time Seen by Provider: 05/28/19 17:56 Hx Obtained From: Patient Onset/Duration: Sudden Onset, Lasting Hours Timing: Constant Severity Initially: Moderate Severity Currently: Moderate Pain Intensity: 5 Location of Injury: Conjunctiva Character: Sharp Aggravating Factor(s): Light, Contact Lens, Blinking Alleviating Factor(s): Nothing Associated Signs And Symptoms: Positive: Photophobia, Drainage (Clear) - Allergies/Home Medications Allergies/Adverse Reactions: Allergies Allergy/AdvReac Type Severity Reaction Status Date / Time cefaclor [From [facility]] Allergy Severe Hives Verified 05/28/19 17:50 Home Medications: Home Medications LevoCETirizine TAB (NF) [Xyzal TAB (NF)] 5 mg PO DAILY 05/28/19 [History Confirmed 05/28/19] Pioglitazone HCl/Glimepiride [Pioglitazone-Glimepiride 30-4] 1 each PO DAILY [History Confirmed 05/28/19] PMH/Surg Hx/FS Hx/Imm Hx Endocrine History: Diabetes Cardiovascular History: Hypertension Neurological History: Migraine - Surgical History Surgical History: Yes Surgery Procedure, Year, and Place: Pilonidal cyst. Colon resection. Tonsils. Ear tubes - Family History Known Family History: Positive: Unknown - adopted - Social History Occupation: Employed Full-time Lives: With Family Alcohol Use: None Substance Use Type: None Smoking Status (MU): Smoker, Current Status Unknown Type: Smokeless Tobacco Amount Used/How Often: 1 can weekly - Immunization History Most Recent Tetanus Shot: UTD Review of Systems All Other Systems Reviewed And Are Negative: Yes Constitutional: Positive: Negative, Other - has been off his diabetes meds x 3 weeks, just renewed today Skin: Positive: Negative Eyes: Positive: Negative, Drainage, Eye Redness ENT: Positive: Negative Respiratory: Positive: Negative Cardiovascular: Positive: Negative, Other - no hx of hypertension Motor: Positive: Negative Neurovascular: Positive: Negative Musculoskeletal: Positive: Negative Neurological: Positive: Headache - has mild headache, reminiscent of migraine. Psychological: Positive: Anxious Is Patient Immunocompromised?: No Physical Exam Triage Information Reviewed: Yes Appearance: Pain Distress - mild to moderate, Obese Vital Signs: Initial Vital Signs Temp 97.2 F 05/28/19 17:46 Pulse 85 05/28/19 17:46 Resp 17 05/28/19 17:46 BP 149/97 05/28/19 17:46 Pulse Ox 98 05/28/19 17:46 Eye Exam: Other - PHOEBE Eyes: Positive: Conjunctiva Inflamed - on left, Discharge - clear Eye anaesthetized with one drop tetracaine. Negative fluoroscein uptake, no abrasion , lid flipped without abrasion ENT: Positive: Pharynx normal Dental Exam: Normal Neck exam: Normal Neck: Positive: Supple, Nontender, No Lymphadenopathy Respiratory: Positive: Lungs clear, Normal breath sounds Cardiovascular: Positive: RRR, No Murmur Musculoskeletal Exam: Normal Neurological Exam: Normal Psychological Exam: Normal Eye Complaint Course/Dx - Course Course Of Treatment: No foreign body seen or fluoroscein uptake. Will continue compressing, see opthalmologist in the morning if symptoms persist. - Differential Dx/Diagnosis Differential Diagnosis/HQI/PQRI: Corneal Abrasion, Foreign Body, Penetrating Injury Provider Diagnosis: Gritty eye Discharge ED - Sign-Out/Discharge Documenting (check all that apply): Patient Departure All imaging exams completed and their final reports reviewed: No Studies - Discharge Plan Condition: Stable Disposition: HOME Prescriptions: Polymyx/Trimethoprim OPTH* [Polytrim OPHTH*] 2 drop LEFT EYE Q2H #1 btl Patient Education Materials: Eye Foreign Body (ED) Referrals: Jose Kim MD [Primary Care Provider] - Omid Thacker MD [Medical Doctor] - Additional Instructions: The evaluation today does not show any persistent foreign body or abrasion. Compress the left eye with cool cloths, take acetaminophen for headache pain, and use antibitoic eye drops every 2 hours tonight and tomorrow to prevent infection. If you have persistent eye symptoms in the morning, please call Dr. Thacker to schedule an evaluation. - Billing Disposition and Condition Condition: STABLE Disposition: Home
== END 2019-05-28 18:35 | disposition home or self-care (01) ==
LOC: UCCORT 17:21
DX: H57.89 Other specified disorders of eye and adnexa (principal); F17.290 Nicotine dependence, other tobacco product, uncomplicated; E11.9 Type 2 diabetes mellitus without complications; I10 Essential (primary) hypertension; Z88.1 Allergy status to other antibiotic agents; Z79.84 Long term (current) use of oral hypoglycemic drugs
CPT/HCPCS: 99212; A9270-GY; G0463